=== PATIENT | female | born 1990 | race Caucasian/White ===

== ENCOUNTER 2024-02-17 10:24 | Outpatient (RCR) | payer OTHER, SELFPAY ==
[2024-02-14 10:11] VITALS: BP 117/75; PULSE 71
[2024-02-17 10:56] VITALS: BP 111/74; PULSE 87
== END 2024-05-14 23:59 | disposition home or self-care (01) ==
LOC: ANHOBOP 10:24
PROVIDERS: Visit Provider Obstetrics & Gynecology
DX: O48.0 Post-term pregnancy (principal)
CPT/HCPCS: 59025

== ENCOUNTER 2024-02-18 11:41 | Inpatient (IN) | payer OTHER, SELFPAY ==
[2024-02-18] VITALS (141 sets, daily range): BP systolic 88–138; BP diastolic 38–105; PULSE 25–124; TEMP 36.4–37.3; O2SAT 81–100; BMI 27.3
[2024-02-18 12:44] LABS: Basophils Percent Auto 0.2 % (0.2-1.2); Eosinophils Absolute Auto 0.1 K/mm3 (0-0.3); Eosinophils Percent Auto 0.9 % (0-4.4); Hematocrit 36.8 % (37.0-47.0); Hemoglobin 12.9 g/dL (12.0-15.0); Immature Granulocyte Absolute 0.05 K/mm3 (0.00-0.031); Immature Granulocyte Percent A 0.5 % (0-0.5); Lymphocytes Absolute Auto 1.62 K/mm3 (0.9-3.2); Lymphocytes Percent Auto 15.5 % (18.3-44.2); Mean Corpuscular HGB Conc 35.1 g/dl (32-36); Mean Corpuscular Hemoglobin 33.1 pg (26-34); Mean Corpuscular Volume 94.4 fl (80-100); Mean Platelet Volume 10.4 fl (7.4-10.4); Monocytes Absolute Auto 0.9 K/mm3 (0.1-0.6); Monocytes Percent Auto 8.9 % (2.6-8.5); Neutrophils Absolute Auto 7.8 K/mm3 (1.3-6.7); Platelet Count Result 222 k/mm3 (150-375); Red Cell Distribution Width 13.1 % (11.5-14.5); White Blood Count 10.5 K/mm3 (4.5-10.0)
[2024-02-18 13:34] LABS: HIV 1/2 Ab P24 Ag Result Negative (Negative)
[2024-02-18 13:49] LABS: OBXCEM ROM Plus Positive
[2024-02-18 13:59] LABS: Rapid Plasma Reagin Non-Reactive (NonReactive)
--- NOTE | 2024-02-18 16:37 | PM.IMHP ---
H&P: HPI History of Present Illness Date/Time: 02/18/24 16:37 Chief Complaint: Water broke Narrative: 33 y/o G1 at 41 4/7 weeks here after a gush of fluid at 1015 today. SROM confirmed here, meconium stained fluid. GBS neg. EFW by ultrasound at 37 weeks 6#5oz. Review of Systems Review of Systems: All systems reviewed & are unremarkable except as noted in HPI and below PMFSH Past Medical History Medical History Chronic back pain Surgical History Surgical History History of inguinal hernia repair Family History Family History Other Diabetes mellitus Social History Social History Smoking status: Never smoker Second hand tobacco smoke exposure: No Substance use: never Do You Feel Safe in your Home?: Yes Lack of Transportation: No Lack of Food: Never True Current Housing: I Have Housing Concerned About Future Housing: No Difficulty Paying Gas/Electric Bills: No Difficulty Paying for Meds: No Currently Unemployed: No Education: Bachelor's Degree Difficulty w/ Childcare or Family Care: No Spiritual care concerns: No Meds Home Medications and Allergies Home Medications Medication Instructions Recorded Confirmed Type vits no.126-ferrous fum 1 tablet PO DAILY 01/19/24 01/19/24 History 28 mg iron-folic acid 800 mcg tablet (Classic ) Allergies Allergy/AdvReac Type Severity Reaction Status Date / Time No Known Allergies Allergy Verified 01/19/24 13:22 Vital Signs Vital Signs - 24 hr 02/18/24 12:37 02/18/24 11:57 02/18/24 12:00 Temperature Pulse Rate 86 72 Blood Pressure 113/76 105/72 Pulse Oximetry Oxygen Delivery Room Air 02/18/24 12:30 02/18/24 13:00 02/18/24 14:55 Temperature 37.3 C Pulse Rate 83 100 76 Blood Pressure 103/61 114/82 112/73 Pulse Oximetry Oxygen Delivery 02/18/24 15:00 02/18/24 16:12 09/06/24 16:34 Temperature 36.9 C Pulse Rate 73 Blood Pressure 115/74 Pulse Oximetry 100 Oxygen Delivery Exam Const: Orientation/consciousness: patient oriented x3 Other: Well-developed, well-nourished female in no acute distress. Neck: Thyroid: thyroid normal Lymphatic: no lymphadenopathy noted (in neck, axilla or inguinal nodes) Resp: Effort & Inspection: normal respiratory effort Auscultation: clear to auscultation bilaterally Cardio: Rate: regular rate Rhythm: regular rhythm Heart sounds: S1 normal heart sound present and S2 normal heart sound present GI: Other: ABD: Soft, nontender, nondistended, gravid. NST reactive. TOCO: contractions irregular. No guarding or rebound tenderness. No hepatosplenomegaly. : General: Yes no CVA tenderness Other: Cervix 1-2/80/-2. IUPC placed. Vertex. Meconium-stained fluid. Back/Spine/Pelvis: Back: no CVA tenderness Skin: General skin exam: normal color and no rashes or lesions noted Neuro: General: patient oriented x3 Extrem: Other: Extremities: nontender with no edema Psych: Mental Status: mental status grossly normal Affect: normal affect H&P: Results Labs Labs: Short CBC 02/18/24 Range/Units 12:04 WBC 10.5 H (4.5-10.0) K/mm3 Hgb 12.9 (12.0-15.0) g/dL Hct 36.8 L (37.0-47.0) % Plt Count 222 (150-375) k/mm3 Assessment and Plan Assessment and plan (1) Term : Code(s): Z34.90 - Encounter for supervision of normal , unspecified, unspecified trimester Status: Acute Assessment and Plan: A: IUP at 41 4/7 weeks with SROM, meconium. P: Augment labor as needed. Anticipate . (2) SROM (spontaneous rupture of membranes): Status: Acute
[2024-02-18] MEDS: fentaNYL CITRATE INJ (*CRX) 100 MCG/2 ML VIAL 50 MCG IV PUSH (17:46)
[2024-02-18] MEDS: LACTATED RINGERS 1,000 ML 125 ML IV CONT ×2 (18:02→19:02)
--- NOTE | 2024-02-18 18:09 | WPDANESEPP ---
Anes - Eval Pre Procedure Procedure: Labor epidural Date/Time: 02/18/24 18:09 Surgeon: Rosa Isela Preop Diagnosis: pain during labor Pre Op Diagnosis: IOL Patient Data Age: 33 Gender: F Height: 1.57 m Weight: 68 kg Last Vital Signs Temp 36.9 C 02/18/24 15:00 Pulse 73 02/18/24 16:12 BP 115/74 02/18/24 16:12 Pulse Ox 100 02/18/24 18:07 O2 Del Method Room Air 02/18/24 12:37 Allergies Allergy/AdvReac Type Severity Reaction Status Date / Time No Known Allergies Allergy Verified 01/19/24 13:22 Home Medications Medication Instructions Recorded Confirmed Type vits no.126-ferrous fum 1 tablet PO DAILY 01/19/24 01/19/24 History 28 mg iron-folic acid 800 mcg tablet (Classic ) Laboratory Tests 02/18/24 02/18/24 11:58 12:04 WBC 10.5 H K/mm3 (4.5-10.0) RBC 3.90 L M/mm3 (4.2-5.4) Hgb 12.9 g/dL (12.0-15.0) Hct 36.8 L % (37.0-47.0) MCV 94.4 fl (80-100) MCH 33.1 pg (26-34) MCHC 35.1 g/dl (32-36) RDW 13.1 % (11.5-14.5) Plt Count 222 k/mm3 (150-375) MPV 10.4 fl (7.4-10.4) Immature Gran % (Auto) 0.5 % (0-0.5) Neut % (Auto) 74.0 H % (45.5-73.1) Lymph % (Auto) 15.5 L % (18.3-44.2) [place] % (Auto) 8.9 H % (2.6-8.5) Eos % (Auto) 0.9 % (0-4.4) Baso % (Auto) 0.2 % (0.2-1.2) Lymph # (Auto) 1.62 K/mm3 (0.9-3.2) [place] # (Auto) 0.9 H K/mm3 (0.1-0.6) Eos # (Auto) 0.1 K/mm3 (0-0.3) Baso # (Auto) 0.0 K/mm3 (0.0-0.1) Abs Immat Gran (auto) 0.05 H K/mm3 (0.00-0.031) Absolute Neuts (auto) 7.8 H K/mm3 (1.3-6.7) Absolute Nucleated RBC 0.000 K/mm3 (0.0-0.012) Nucleated RBC % 0.0 % (0.0-0.2) Membranes Rupture Rom plus positive RPR Non-reactive (NonReactive) HIV 1&2 Ab/P24 Ag 4thGn Negative (Negative) Blood Type AB Positive Antibody Screen Negative Patient hx anesthesia problems: none Family hx anesthesia problems: none Results Review: All pre-operative results and documents have been reviewed as part of the pre-operative evaluation. [facility] Past Medical History Medical History Chronic back pain Surgical History Surgical History History of inguinal hernia repair Family History Family History Other Diabetes mellitus Social History Social History Smoking status: Never smoker Second hand tobacco smoke exposure: No Substance use: never Do You Feel Safe in your Home?: Yes Lack of Transportation: No Lack of Food: Never True Current Housing: I Have Housing Concerned About Future Housing: No Difficulty Paying Gas/Electric Bills: No Difficulty Paying for Meds: No Currently Unemployed: No Education: Bachelor's Degree Difficulty w/ Childcare or Family Care: No Spiritual care concerns: No Exam Day of Procedure 02/18/24 18:09
[2024-02-18] MEDS: PHENYLEPHRINE 1,000 MCG/10 ML SYRINGE 100 MCG IV PUSH (19:02)
[2024-02-19] VITALS (92 sets, daily range): BP systolic 90–122; BP diastolic 47–103; PULSE 32–223; RESP 16; TEMP 36.7–37.6; O2SAT 70–100
[2024-02-19] MEDS: LACTATED RINGERS 1,000 ML 125 ML IV CONT (03:03)
[2024-02-19] MEDS: AMPICILLIN 2 GM/NS 100 ML 2 GM/100 ML BAG IVPB (04:10)
--- NOTE | 2024-02-19 05:29 | PM.OBPNLAB ---
Pain Control Date/time seen: 02/19/24 05:29 Comfortable with epidural. Receiving antibiotics for prolonged ROM. Pushing. AVSS NST reactive, now with variable decelerations with pushing. TOCO: contractions every 2-3 min Cervix C/+1 Continue pushing.
[2024-02-19] MEDS: OXYTOCIN 30 UNITS/NS 500 ML 30 UNITS/500 ML BAG 999 UNITS IV CONT (06:27)
--- NOTE | 2024-02-19 06:52 | PM.OBPRVD ---
OB - Vaginal Delivery Note Procedure Delivery date: 02/19/24 Induction method: None Delivery monitor: External FHT, External Uterine and Internal Uterine Route of delivery: Episiotomy description: None Laceration Description: Perineal - 2nd Degree Delivery repair: vicryl (3-0) Specimen: Yes (cord blood, placenta) Quantitative Blood Loss (ml): 420 Anesthesia type: Epidural Disposition: PACU Complications: None Narrative: 33 y/o G1 at 41 5/7 weeks gestation who had presented to the hospital after a gush of fluid. SROM was confirmed, with thick meconium. Labor progressed without stimulation. She received an epidural for pain control. After 18 hours she was given ampicillin intravenously. Her labor progressed and her cervix dilated completely. She pushed with good effort and delivered the 's head to the perineum, followed by the body. The nose and mouth were bulb suctioned. After a delay, the cord was clamped and cut. The infant was handed off the field. Cord blood was collected. The placenta delivered spontaneously and was grossly normal in appearance. The usual 3 vessel cord was noted. A second degree midline perineal laceration was sustained. This was reapproximated using 3 0 Vicryl in the usual layered fashion. Excellent hemostasis resulted as did excellent reapproximation of the normal anatomy. Needle and instrument counts were correct. The patient was taken to recovery room in stable condition. The infant went to the nursery in stable condition. I was present and scrubbed for the entire delivery. [place] Baby Date of : 02/19/24 Time of : 06:23 Gestational Age by Date: 41 gender: Female Weight (pounds): 7 Weight (ounces): 2 presentation: vertex position: Left Occiput Anterior Placenta delivery description: Spontaneous and Normal Configuration Cord Vessel Description: 3 Vessels and Delayed Cord Clamping score one minute: 3 score five minutes: 9
--- NOTE | 2024-02-19 06:55 | PM.OBDSVD ---
DS: Admitting Diagnosis Discharge Date 02/21/2024 <Josiah Arellano MD - Last Filed: 02/21/24 07:15> Admitting Diagnosis IUP at 41 5/7 weeks SROM <Nazario Mojica MD - Last Filed: 02/22/24 08:59> DS: Discharge Diagnosis Discharge Diagnosis (1) (normal spontaneous vaginal delivery): Code(s): O80 - Encounter for full-term uncomplicated delivery <Nazario Mojica MD - Last Filed: 02/22/24 08:59> Status: Acute <Nazario Mojica MD - Last Filed: 02/22/24 08:59> OB - DS: Summary OB Procedures : None <Nazario Mojica MD - Last Filed: 02/22/24 08:59> OB Procedures Intrapartum: Spontaneous Vag Delivery <Nazario Mojica MD - Last Filed: 02/22/24 08:59> OB Procedures: : None <Nazario Mojica MD - Last Filed: 02/22/24 08:59> Peripartum Data Laceration Description: Perineal - 2nd Degree <Nazario Mojica MD - Last Filed: 02/22/24 08:59> Episiotomy description: None <Nazario Mojica MD - Last Filed: 02/22/24 08:59> Time Spent with Patient Time attestation: Total time spent providing and/or coordinating discharge services: <Nazario Mojica MD - Last Filed: 02/22/24 08:59> DS: Data Data Completed and Pending Labs on day of discharge: Labs from last 24 hours 02/18/24 02/18/24 12:04 11:58 WBC 10.5 H RBC 3.90 L Hgb 12.9 Hct 36.8 L MCV 94.4 MCH 33.1 MCHC 35.1 RDW 13.1 Plt Count 222 MPV 10.4 Immature Gran % (Auto) 0.5 Neut % (Auto) 74.0 H Lymph % (Auto) 15.5 L [place] % (Auto) 8.9 H Eos % (Auto) 0.9 Baso % (Auto) 0.2 Lymph # (Auto) 1.62 [place] # (Auto) 0.9 H Eos # (Auto) 0.1 Baso # (Auto) 0.0 Abs Immat Gran (auto) 0.05 H Absolute Neuts (auto) 7.8 H Absolute Nucleated RBC 0.000 Nucleated RBC % 0.0 Membranes Rupture Rom plus positive RPR Non-reactive HIV 1&2 Ab/P24 Ag 4thGn Negative Blood Type AB Positive Antibody Screen Negative <Nazario Mojica MD - Last Filed: 02/22/24 08:59> Discharge Plan Discharge Attending physician on discharge: Jsoiah Mota <Nazario Mojica MD - Last Filed: 02/22/24 08:59> Josiah Mota <Josiah Arellano MD - Last Filed: 02/21/24 07:15> Discharging Clinician: Josiah Mota <Nazario Mojica MD - Last Filed: 02/22/24 08:59> Josiah Mota <Josiah Arellano MD - Last Filed: 02/21/24 07:15> Patient Disposition: Home, Self-Care <Nazario Mojica MD - Last Filed: 02/22/24 08:59> Activity: may shower, no straining and pelvic rest <Nazario Mojica MD - Last Filed: 02/22/24 08:59> may shower, no straining and pelvic rest <Josiah Arellano MD - Last Filed: 02/21/24 07:15> Diet: regular <Nazario Mojica MD - Last Filed: 02/22/24 08:59> regular <Josiah Arellano MD - Last Filed: 02/21/24 07:15> Discharge Instructions: Call or return if temperature above 100.4? F, increased abdominal pain, increased vaginal bleeding or any new problems. Education: Mom and Baby Guide Given to: Mother Follow-Up: Call your delivering provider's office for an appointment to be seen in: 6 Weeks Mom and baby should come to the [facility] for the follow-up appointment. Appointment Date/Time: February 22, 2024 at 10:00 am What to expect at your follow-up visit: Physical Assessment Call [phone] if you are unable to keep your appointment time. BREAST CARE: * Wear a snug supportive bra. * For engorgement discomfort: Breast Feeding: * Apply warm moist washcloths * Express milk as needed to relieve engorgement * Wear loose clothing * For sore nipples: * Identify correct latch-on * Apply warm moist washcloths before and after nursing * Air dry nipples after nursing * May apply Lansinoh cream to nipples
[2024-02-19] MEDS: OXYTOCIN 30 UNITS/NS 500 ML 30 UNITS/500 ML BAG 125 UNITS IV CONT (06:59)
[2024-02-19] MEDS: BENZOCAINE 20% AER SPR (*SP) 56 GM CAN 1 SPRAY TOPICAL (09:13)
[2024-02-19] MEDS: IBUPROFEN 600 MG TABLET PO ×3 (09:13→23:31)
[2024-02-19] MEDS: WITCH HAZEL 40 PADS 1 PAD TOPICAL (09:13)
--- NOTE | 2024-02-19 10:27 | OBPPTRN ---
0936 Patient transferred to post room #285 via W/C. Support person present. Oriented to unit, room, information board, rooming in, admission packet and security measures. Patient verbalizes understanding.
--- NOTE | 2024-02-19 17:55 | PC.NURSE ---
Consulted with patient to assess needs related to . Discussed with mother her successes, concerns and any questions she has. She wonders how we know baby is 'getting enough' so we reviewed signs of adequate intake, emphasizing that infants are very sleepy in the first 24 hours. We reviewed working with the , supporting breast, protecting her nipples with an optimal deep latch, good positioning. Encouraged understanding the benefits of skin to skin, frequencies of feeding, duration of feedings, milk production, intake/output feeding sheet and signs of adequate intake encouraging swallowing at the breast. Reviewed positioning and alignment, supporting breast, off-centered (asymmetrical latch) and leading with the chin with big, open, wide gape. Infant latch well and then slipped to the nipple as we talked, so we unlatched and observed the pinched look of her nipple and how to prevent smashing of the nipple by ensuring a deep latch. latched optimally to the right breast in cross cradle position. Education given to the mother of how to visualize the suckling (with good rocking jaw motion). The infant was [able] to maintain latch without discomfort to mother. Nipple care reviewed with optimal latch. Mother voiced understanding of the education shared, to call for assistance if the infant does not latch or if there is discomfort with . Reported to the Primary RN.
[2024-02-19] MEDS: ACETAMINOPHEN 325 MG TABLET 650 MG PO (23:30)
[2024-02-19] MEDS: DOCUSATE SODIUM 100 MG CAPSULE PO (23:31)
[2024-02-20 04:00] VITALS: BP 98/60; PULSE 90; RESP 16; TEMP 36.8; O2SAT 99
[2024-02-20 04:55] LABS: Hematocrit 28.1 % (37.0-47.0); Hemoglobin 9.6 g/dL (12.0-15.0)
--- NOTE | 2024-02-20 05:29 | PM.OBPNVD ---
OB - PN: Subj Subjective Date/time seen: 02/20/24 05:29 Narrative: Pain OK. OB - PN: Obj Data Labs 02/20/24 04:07 Labs: Laboratory Results - last 24 hr 02/20/24 04:07 Hgb 9.6 L D Hct 28.1 L OB - PN A/P Plan day: 1 Comments: A: PPD#1, doing well. P: Routine care. Exam Psych: Other: AVSS ABD soft, nontender, fundus firm EXT nontender
[2024-02-20 08:04] VITALS: BP 106/62; PULSE 81; RESP 18; TEMP 36.7; O2SAT 98
--- NOTE | 2024-02-20 10:08 | WPDANLDPN2 ---
Anes-Prog Note L&D Date/Time: 02/20/24 10:08 Comfortable throughout: labor and delivery Neuraxial method: epidural Epidural/Spinal procedure site: clean & non-tender Neuro status: Neuro function grossly intact. Cardiovascular status: normal Respiratory status: normal Airway patency: baseline Mental status: baseline Post-Op hydration status: normal Vital Signs: Last Vital Signs Temp 36.7 C 02/20/24 08:04 Pulse 81 02/20/24 08:04 Resp 18 02/20/24 08:04 BP 106/62 02/20/24 08:04 Pulse Ox 98 02/20/24 08:04 O2 Del Method Room Air 02/19/24 09:36 Pain score (VAS): 0 Post-procedural complaints: none Patient feedback: Patient satisfied with anesthetic care.
[2024-02-20] MEDS: MULTIVIT/MIN/PREN/FOL AC/IRON TABLET 1 TAB PO (10:23)
[2024-02-20] MEDS: ACETAMINOPHEN 325 MG TABLET 650 MG PO ×2 (10:24→17:48)
[2024-02-20] MEDS: POLYSACCHARIDE IRON COMPLEX 150 MG CAPSULE PO ×2 (10:24→17:50)
[2024-02-20] MEDS: IBUPROFEN 600 MG TABLET PO ×2 (10:25→17:49)
[2024-02-20] MEDS: DOCUSATE SODIUM 100 MG CAPSULE PO (17:50)
[2024-02-21] MEDS: IBUPROFEN 600 MG TABLET PO ×2 (04:09→09:34)
[2024-02-21] MEDS: ACETAMINOPHEN 325 MG TABLET 650 MG PO (04:10)
--- NOTE | 2024-02-21 07:16 | PM.OBPNVD ---
OB - PN: Subj Subjective Date/time seen: 02/21/24 07:16 Patient comments: no complaints and pain well controlled baby status: doing well OB - PN: Obj Data Labs 02/20/24 04:07 OB - PN A/P Plan day: 2 Plan: routine care, discharge home and follow up 6 weeks Time Spent With Patient Time: Total time spent is greater than 50% in coordination of care (as documented) at patient's floor/unit and/or counseling patient: Time with patient: less than 15 minutes Exam Const: General: cooperative, healthy appearing and comfortable Nutritional Appearance: average body habitus Orientation/consciousness: oriented to person, oriented to place and oriented to time Resp: Effort & Inspection: normal respiratory effort Cardio: Rate: regular rate Rhythm: regular rhythm Heart sounds: S1 normal heart sound present and S2 normal heart sound present GI: Inspection: normal to inspection
[2024-02-21 08:00] VITALS: BP 111/58; PULSE 74; RESP 16; TEMP 36.6; O2SAT 100
[2024-02-21] MEDS: POLYSACCHARIDE IRON COMPLEX 150 MG CAPSULE PO (08:47)
[2024-02-21] MEDS: MULTIVIT/MIN/PREN/FOL AC/IRON TABLET 1 TAB PO (08:48)
--- NOTE | 2024-02-21 09:05 | PC.NURSE ---
Patient requested measurement for flange sizing for her Spectra pump. She measured at a 18 mm; recommended the 24mm flange per the [employer] guidelines.
--- NOTE | 2024-02-21 09:05 | PC.NURSE ---
Consulted with mother concerning needs and she shared her ability to independently latch infant. She has sore nipples and we reviewed a deep latch, how to observe baby's mouth for a wide gape and flanged lips. Observed mother feeding on the right breast in football position. Baby was initially shallow, and we broke suction and relatched easily with a deep latch. Mother states it feels much better. Mother verbalized her understanding of how to obtain a deep latch. Mother is feeding appropriately for growth of and understands stimulating to eat if needed. has had appropriate feedings in the last 24 hours meets the outcomes for weight, output, blood sugar and jaundice at this time. Reinforced understanding of milk production, transition of milk, signs of adequate intake, transition of stool, responsive , community resources, and when to call a provider using the resource of the feeding sheet along with the mom and baby guide. Mother voiced understanding of the information shared, is confident to continue effectively her infant at home, when to call for assistance, denies any additional assistance or education at this time. Reported to the Primary RN.
[2024-02-21] MEDS: DOCUSATE SODIUM 100 MG CAPSULE PO (09:34)
[2024-02-22 10:26] VITALS: BP 111/73; PULSE 80; RESP 18; TEMP 36.8; O2SAT 100
== END 2024-02-21 10:40 | disposition home or self-care (01) | DRG 807 ==
LOC: ANHLDR 02-19 06:56 → ANHOB2 02-19 09:46
PROVIDERS: Obstetrics & Gynecology; Admitting Provider Obstetrics & Gynecology; PCP Physician Assistant; Visit Provider Obstetrics & Gynecology
DX: O77.0 Labor and delivery complicated by meconium in amniotic fluid (principal); Z37.0 Single live birth; Z3A.41 41 weeks gestation of pregnancy; O70.1 Second degree perineal laceration during delivery; O36.8330 Maternal care for abnormalities of the fetal heart rate or rhythm, third trimester, not applicable or unspecified
CPT/HCPCS: 36415; 59025; 84112; 85014; 85018; 85025; 86592; 86703; 86850; 86900; 86901; 88307; A9270; G0432; J0290; J2371; J2590; J2795; J3010; J7120